=== PATIENT | male | born 1950 | race Caucasian/White ===

== ENCOUNTER → 2016-07-24 | Outpatient (CLI) | payer OTHER, MEDICARE ==
--- NOTE | 2016-07-24 16:12 | DX ---
PA and lateral chest x-ray 1517 hours. History: Cough. Evaluate for pneumonia. Findings: Comparison to May 23, 2015 and January 26, 2015. Heart size remains within normal limits. Pulmonary vasculature is mildly prominent centrally similar to the prior studies. No significant lymphadenopathy is appreciated on today's exam. There is mild pe ribronchial cuffing in the perihilar region with hazy increased markings extending to the lingula christina t could represent pneumonitis or early pneumonia. Remainder the lungs are clear. There are no effusio ns. Osseous structures are unchanged. Impression: 1. Mild haziness in the region of the lingula that could represent early pneumonia or pneumonitis.
== END ==
LOC: BMCIMAGING 15:19
PROVIDERS: ATTEND Internal Medicine
DX: R05 Cough (principal)

== ENCOUNTER → 2016-09-15 | Outpatient (CLI) | payer OTHER, MEDICARE | LOC: FIMAGING 13:23 | PROVIDERS: ATTEND Physician Assistant | DX: M25.512 Pain in left shoulder (principal); M24.112 Other articular cartilage disorders, left shoulder; M24.012 Loose body in left shoulder; M75.22 Bicipital tendinitis, left shoulder ==